=== PATIENT | male | born 1930 | race Caucasian/White ===

== ENCOUNTER 2018-04-04 07:17 | Emergency (ER) | payer OTHER ==
--- NOTE | 2018-04-04 08:02 | EDPHY ---
H & P Stated Complaint: PT. fell aprox 2" off of step ladder backward onto [email or web address] 04/03 Time Seen by Provider: 04/04/18 07:27 HPI/ROS: This patient complains of left posterior chest wall pain after a fall from approximately 18 in from the ground on a step ladder outside of his home yesterday afternoon. He fell backwards (witnessed by his son who accompanies him here today and drove him here by private vehicle) landing on a ground light at a metal frame verses back. He also reports a contusion to his left elbow with no significant pain. He reports that the chest wall pain is moderate baseline but 8/10 with movement. He took 400 mg of ibuprofen 3 hr prior to arrival and oxycodone 5 mg shortly prior to arrival with partial relief. No other exacerbating factors. He describes losing his balance as the cause of the fall and his son confirms this. ROS: Constitutional: He felt well prior to the fall. HEENT: No facial injuries Musculoskeletal: No midline neck or back pain. He reports left elbow pain is minimal and no change with movement. Integumentary: As an abrasion to the left upper back at the site of impact and superficial elbow abrasion. No lacerations. Neuro: No head injury. No numbness or tingling. 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 There has been no change in his chronic wounds minor drainage that he treats with any bandage each day. He has no abdominal pain. No nausea vomiting since the fall 10 point review of symptoms is performed and otherwise negative with exception of pertinent positives and negatives listed in HPI and ROS Source: Patient Exam Limitations: No limitations - Personal History Current Tetanus Diphtheria and Acellular Pertussis (TDAP): Unsure - Medical/Surgical History Hx Asthma: No Hx Chronic Respiratory Disease: No Hx Diabetes: No Hx Cardiac Disease: No Hx Renal Disease: No Hx Cirrhosis: No Hx Alcoholism: No Hx HIV/AIDS: No Hx Splenectomy or Spleen Trauma: No - Social History Smoking Status: Never smoked Constitutional: Initial Vital Signs Temperature (C) 36.4 C 04/04/18 07:25 Heart Rate 64 04/04/18 07:25 Respiratory Rate 16 04/04/18 07:25 Blood Pressure 139/76 H 04/04/18 07:25 O2 Sat (%) 88 L 04/04/18 07:25 O2 Delivery Mode Room Air Allergies/Adverse Reactions: Penicillins Allergy (Severe, Verified 04/04/18 07:23) Anaphylaxis sulfamethoxazole [From Bactrim] Allergy (Verified 04/04/18 07:23) trimethoprim [From Bactrim] Allergy (Verified 04/04/18 07:23) Home Medications: Medication Instructions Recorded Ascorbic Acid [Vitamin C 250 mg 250 mg PO DAILY 03/14/12 (OTC)] Aspirin [Aspirin 81mg (OTC)] 81 mg PO DAILY 03/14/12 Calcium Citrate [Citracal (OTC)] 200 mg PO DAILY 03/14/12 Cholecalciferol Vit D3 [Vitamin D3 400 units PO DAILY 03/14/12 400 units (OTC)] Coenzyme Q10 [Co Q-10 30 mg (OTC)] 100 mg PO DAILY 03/14/12 Levothyroxine [Synthroid 75 mcg 75 mcg PO DAILY06 03/14/12 (RX)] Multivitamins [Multivitamin (OTC)] 1 tab PO DAILY 03/14/12 [place]-3 Fatty Acids/Fish Oil [Fish 1 tab PO DAILY 03/14/12 Oil 1,000 mg Capsule] Allopurinol [Allopurinol 100 MG 04/04/18 (*)] Docusate Sodium [Colace 100 MG (*)] 100 mg PO BID PRN #20 cap 04/04/18 Lidocaine [Lidoderm] 1 each TP DAILY #15 adh..patch 04/04/18 Rosuvastatin Calcium [Crestor] 04/04/18 oxyCODONE/APAP 5/325 [Percocet 1 - 2 tab PO Q4-6PRN PRN #30 tab 04/04/18 5/325 (*)] Medical Decision Making - Diagnostics Imaging Results: Two view chest x-ray with rib views: Left 2nd through 6th rib fractures by my interpretation. I do not appreciate evidence of pneumothorax or hemothorax. Imaging: I viewed and interpreted images myself ED Course/Re-evaluation: Patient treated with additional analgesia of Lidoderm patch and Percocet He is instructed in the use of and participated in the use of incentive spirometer and tolerated this after analgesia here. His room air O2 sat with a good waveform prior to DC was 93% He remained stable while in the emergency department. His O2 sat occasionally dipped into the high 80s but then went typically return to low 90s once he settled. I think that his mild hypoxia attributable to splinting from the rib injuries. Although the patient has significant pain associated with his injury he seems to be tolerating it and I think that he is best served by proceeding home with analgesia plan of NSAIDs, opiates, Lidoderm patches an incentive spirometer. Clinically I do not appreciate any evidence of other significant injuries. He has a benign belly exam no evidence of head injury or other red flag findings. His son is a dentist and has a O2 sat probe at home that he will use to help monitor is father's respiratory status. The understand the need to return emergency department should he develop dyspnea, hypoxia, unbearable pain or other concerns. - Data Points Medications Given: Discontinued Medications Miscellaneous Medication (Icy Hot Lidocaine/Menthol 4%/1% Patch) 1 patch TD EDNOW ONE Stop: 04/04/18 08:31 Last Admin: 04/04/18 08:41 Dose: 1 patch Departure - Departure Disposition: Home, Routine, Self-Care Clinical Impression: Ribs, multiple fractures Qualifiers: Encounter type: initial encounter Fracture type: closed Laterality: left Qualified Code(s): S22.42XA - Multiple fractures of ribs, left side, initial encounter for closed fracture Condition: Good Instructions: Oxycodone/Acetaminophen (By mouth), Lidocaine Patch (On the skin) , Rib Fracture (ED) Additional Instructions: Diagnosis: Multiple rib fractures Plan: Continue ibuprofen -400 mg per 6 hr, Tylenol and/or Percocet in addition for pain control. No driving on Percocet Lidoderm patches as well for pain control Colace stool softener while on Percocet to prevent constipation Incentive spirometer to try to prevent potential secondary complication of pneumonia that can happen if one does not take sufficiently deep breaths due to the rib pain. Follow up with primary care physician for recheck in 2-5 days. Return emergency department if you develop fevers, shortness of breath, coughing up blood or unbearable pain despite the analgesic medications or other concerns. Referrals: Patient,NotPresent [Primary Care Provider] - As per Instructions Denise De La Torre MD [Medical Doctor] - As per Instructions Prescriptions: Docusate Sodium [Colace 100 MG (*)] 100 mg PO BID PRN #20 cap PRN Reason: Constipation Lidocaine [Lidoderm] 1 each TP DAILY #15 adh..patch oxyCODONE/APAP 5/325 [Percocet 5/325 (*)] 1 - 2 tab PO Q4-6PRN PRN #30 tab PRN Reason: Pain
[2018-04-04] MEDS ORDERED: LIDOCAINE 4%/MENTHOL 1% PATCH TD ONE (08:30)
[2018-04-04] MEDS ORDERED: OXYCODONE/APAP 5/325 TAB PO ONE (08:46)
[2018-04-04 09:59] VITALS: BP 120/74
[2018-04-04] MEDS ORDERED: PATCH REMOVAL 1 EA PATCH TD SCH (21:00)
== END 2018-04-04 08:55 | disposition home or self-care (01) ==
LOC: CED 07:17
DX: S22.42XA Multiple fractures of ribs, left side, initial encounter for closed fracture (principal); J93.9 Pneumothorax, unspecified; W11.XXXA Fall on and from ladder, initial encounter; Y92.009 Unspecified place in unspecified non-institutional (private) residence as the place of occurrence of the external cause; Y93.9 Activity, unspecified; Y99.9 Unspecified external cause status
CPT/HCPCS: 71101-PO

== ENCOUNTER → 2018-04-05 | Outpatient (CLI) | payer OTHER | LOC: CIMAGING 08:29 | PROVIDERS: ATTEND Family Medicine | DX: J93.9 Pneumothorax, unspecified (principal); S22.39XA Fracture of one rib, unspecified side, initial encounter for closed fracture | CPT/HCPCS: 71046-PO ==

== ENCOUNTER → 2018-04-11 | Outpatient (CLI) | payer OTHER | LOC: FIMAGING 12:46 → EDSTATUS 12:49 | PROVIDERS: ATTEND Surgery | DX: S22.42XA Multiple fractures of ribs, left side, initial encounter for closed fracture (principal); J84.9 Interstitial pulmonary disease, unspecified ==

== ENCOUNTER 2018-04-23 13:00 | Inpatient (IN) | payer OTHER ==
--- NOTE | 2018-04-23 13:31 | CPEKG ---
Test Reason : OPEN Blood Pressure : / mmHG Vent. Rate : 084 BPM Atrial Rate : 084 BPM P-R Int : 165 ms QRS Dur : 109 ms QT Int : 369 ms P-R-T Axes : 022 -37 024 degrees QTc Int : 437 ms Sinus rhythm Left axis deviation Borderline T wave abnormalities Confirmed by Miguel Angel Pal ([id number]) on 04/23/2018 1:30:39 PM Referred By: Confirmed By:Miguel Angel Pal
--- NOTE | 2018-04-23 13:36 | EDPHY ---
H & P Smoking Status: Never smoked <Miguel Angel Pal - Last Filed: 04/23/18 15:07> <Jez Uriostegui - Last Filed: 04/23/18 17:40> Time Seen by Provider: 04/23/18 13:31 HPI/ROS: Chief complaint. Chest pain HPI. Patient is an 88-year-old male who presents with left anterior chest discomfort that he describes initially as sharp and now more achy that began at 11:00 a.m. This morning. There is no radiation. He says no shortness of breath. Denies cough or fever. Patient had rib fractures 4 through 7 3 weeks ago left posteriorly after falling off a ladder. He had a small apical left pneumothorax that resolved on subsequent chest x-rays. Last chest x-ray on April 11 showed no pneumothorax. The pain today however is in the anterior aspect of his left chest and is different than his broken rib pain. He tells me he has had this previously and thinks that he may have pain coming from his heart. He occasionally takes and choose an aspirin for this type pain and the pain goes away. He tells me the pain is not worse with exertion or breathing or range of motion. He has no unusual leg pain or swelling. The patient is quite a poor historian and hard to keep on track ROS 10 systems were reviewed and negative with the exception of the elements mentioned in the history of present illness (Miguel Angel Pal) Past Medical/Surgical History: Past medical history is significant for dyslipidemia, gout, soft chills stricture, diverticulosis, peptic ulcer disease, hiatal hernia, fundoplication ( Miguel Angel Pal) Social History: , nonsmoker, no alcohol (Miguel Angel Pal) Physical Exam: General Appearance: Alert developed male mild distress. Vitals significant for initial O2 saturation of 88% on room air though with talking he desaturated to 80% Eyes: Pupils equal and round no pallor or injection. ENT, Mouth: Mucous membranes are moist. Respiratory: No retractions. Inspiratory expiratory rales Cardiovascular: Regular rate and rhythm. Gastrointestinal: Abdomen is soft and nontender, no masses, bowel sounds normal. Neurological: Awake and alert, sensory and motor exams grossly normal. Skin: Warm and dry, no rashes. Musculoskeletal: Neck is supple nontender. Extremities symmetrical, full range of motion. Psychiatric: Patient is oriented X 3, there is no agitation. (Miguel Angel Pal) Constitutional: Initial Vital Signs Temperature (C) 36.5 C 04/23/18 13:08 Heart Rate 98 04/23/18 13:08 Respiratory Rate 16 04/23/18 13:08 Blood Pressure 130/81 H 04/23/18 13:08 O2 Delivery Mode Nasal Cannula O2 (L/minute) 3 Allergies/Adverse Reactions: Penicillins Allergy (Severe, Verified 04/04/18 07:23) Anaphylaxis sulfamethoxazole [From Bactrim] Allergy (Verified 04/04/18 07:23) trimethoprim [From Bactrim] Allergy (Verified 04/04/18 07:23) Home Medications: Medication Instructions Recorded Ascorbic Acid [Vitamin C 250 mg 250 mg PO DAILY 03/14/12 (OTC)] Aspirin [Aspirin 81mg (OTC)] 81 mg PO DAILY 03/14/12 Calcium Citrate [Citracal (OTC)] 200 mg PO DAILY 03/14/12 Cholecalciferol Vit D3 [Vitamin D3 400 units PO DAILY 03/14/12 400 units (OTC)] Coenzyme Q10 [Co Q-10 30 mg (OTC)] 100 mg PO DAILY 03/14/12 Levothyroxine [Synthroid 75 mcg 75 mcg PO DAILY06 03/14/12 (RX)] Multivitamins [Multivitamin (OTC)] 1 tab PO DAILY 03/14/12 [place]-3 Fatty Acids/Fish Oil [Fish 1 tab PO DAILY 03/14/12 Oil 1,000 mg Capsule] Allopurinol [Allopurinol 100 MG 04/04/18 (*)] Docusate Sodium [Colace 100 MG (*)] 100 mg PO BID PRN #20 cap 04/04/18 Lidocaine [Lidoderm] 1 each TP DAILY #15 adh..patch 04/04/18 Rosuvastatin Calcium [Crestor] 04/04/18 oxyCODONE/APAP 5/325 [Percocet 1 - 2 tab PO Q4-6PRN PRN #30 tab 04/04/18 5/325 (*)] Medical Decision Making <Miguel Angel Pal S - Last Filed: 04/23/18 15:07> - Diagnostics Imaging: Discussed imaging studies w/ manager call Radiologist <Jez Uriostegui - Last Filed: 04/23/18 17:40> - Diagnostics EKG Interpretation: EKG interpreted by me shows normal sinus normal interval. Left axis deviation. QRS is otherwise normal. There is no significant ST elevation or depression. The rate is 84 No previous EKGs for comparison Monitor strip shows PVC every 4th beat (Miguel Angel Pal) Imaging Results: Imaging Impressions Chest X-Ray 04/23/18 13:55 Impression: 1. There are several persistent left-sided rib fractures, some of which are displaced, with an associated left pleural hematoma and small pleural effusion and left basilar atelectasis/mild infiltrate. 2. Slightly more pronounced hypoventilatory change with diffuse peribronchial thickening and bilateral interstitial lung disease; a component of CHF is not excluded. Chest/Thorax CTA 04/23/18 14:48 Impression: 1. No evidence for pulmonary embolic disease. 2. Large left pleural effusion + 9 left rib fractures raising the possibility of a flail chest. 3. Cardiomegaly with LAD CAD. Chronic pulmonary artery hypertension. 4. Underlying chronic interstitial lung disease vs interstitial pulmonary edema. 5. Gallstone possibly impacted in the gallbladder neck with a distended gallbladder, but without secondary evidence of gallbladder inflammation. Results discussed with Dr. Uriostegui at 3:53 PM General information for patients regarding this examination can be found at [email or web address]. If you have questions or comments about this report, please contact me at (hospital) or [phone] (cell). Chest x-ray interpreted by me shows healing rib fractures, no pneumothorax. There is maybe a new left lower lobe infiltrate. Evidence of congestive heart failure present (Miguel Angel Pal) Procedures: IV normal saline, O2, monitor (Miguel Angel Pal) ED Course/Re-evaluation: Heart score--history-1, EKG-1, age--2, risk factors--1, troponin-0 Total--5 D-dimer is elevated. CT scan chest is ordered. Patient will be given 500 cc normal saline bolus prior to contrast Patient and his and I discussed treatment plan including recommendation for admission. They expressed understanding and agreement (Miguel Angel Pal) 4:00 p.m. We discussed the CT results. The patient is currently comfortable with oxygen nasal cannula. I suspect that the large pleural effusions causing most of his hypoxia and probably chest pain symptoms. I recommended admission and he agreed. Will likely have IR place thoracentesis. We discussed his gallstone. He has no tenderness over his gallbladder. No fevers. We also discussed the coronary artery disease seen on CT scan and edema. 4:05 p.m. I discussed the case with Dr. Estevez who agrees with the plan and will admit. (Jez Uriostegui) Differential Diagnosis: Partial list of the Differential diagnosis considered include but were not limited to; pleural effusion, PE, acute coronary disease, pneumothorax, cholecystitis and although unlikely based on the history and physical exam, I also considered aneurysm, dissection. (Jez Uriostegui) Care Turn Over: Dr. Uriostegui at 3 pm (Miguel Angel aPl) - Data Points Laboratory Results: 04/23/18 04/23/18 04/23/18 14:56 14:16 14:15 POC Sodium 142 mEq/L mEq/L (135-145) POC Potassium 3.6 mEq/L mEq/L (3.3-5.0) POC Chloride 101.0 mEq/L mEq/L (97-110) POC Total CO2 26 mEq/L mEq/L (22-31) POC BUN 23 mg/dL mg/dL (7-23) POC Creatinine 1.2 mg/dL mg/dL (0.7-1.3) POC Glucose 116 mg/dL H mg/dL (70-100) POC Calcium 9.7 mg/dL mg/dL (8.5-10.4) POC Troponin I 0.01 ng/mL ng/mL (0.00-0.08) NT-Pro-B Natriuret Pep 276 pg/mL pg/mL (0-450) Medications Given: Discontinued Medications Sodium Chloride (Ns) 500 mls @ 0 mls/hr IV ONCE ONE PRN Reason: Wide Open Stop: 04/23/18 14:53 Last Admin: 04/23/18 14:50 Dose: 500 mls Point of Care Test Results: CBC CBC Collection Date 04/23/18 CBC Collection Time 14:19 WBC 9.1 RBC 3.6 HGB 13.5 HCT 39.0 PLT 264 Neut # 6.2 Neut 68.2 LYMPH # 1.7 LYMPH 19.0 Other WBC # 1.2 Other WBC 12.8 MCV 108.3 Chemistry 04/23/18 04/23/18 14:16 14:15 POC Sodium 142 mEq/L mEq/L (135-145) POC Potassium 3.6 mEq/L mEq/L (3.3-5.0) POC Chloride 101.0 mEq/L mEq/L (97-110) POC Total CO2 26 mEq/L mEq/L (22-31) POC BUN 23 mg/dL mg/dL (7-23) POC Creatinine 1.2 mg/dL mg/dL (0.7-1.3) POC Glucose 116 mg/dL H mg/dL (70-100) POC Calcium 9.7 mg/dL mg/dL (8.5-10.4) POC Troponin I 0.01 ng/mL ng/mL (0.00-0.08) D-Dimer D-Dimer Collection Date 04/23/18 D-Dimer Collection Time 14:19 D-Dimer (ng/ml) 3100 Departure <Miguel Angel Pal S - Last Filed: 04/23/18 15:07> <Jez Uriostegui - Last Filed: 04/23/18 17:40> - Departure Disposition: [facility] Inpatient Acute Clinical Impression: Pleural effusion Chest pain Qualifiers: Chest pain type: unspecified Qualified Code(s): R07.9 - Chest pain, unspecified Condition: Fair
[2018-04-23] MEDS ORDERED: NS 500 ML IV ONE (14:52)
[2018-04-23] MEDS ORDERED: IOPAMIDOL (ISOVUE 370) 100 ML BTL IV ONE (14:55)
[2018-04-23] MEDS ORDERED: ACETAMINOPHEN 325 MG TAB PO PRN (16:10)
[2018-04-23] MEDS ORDERED: ONDANSETRON 4 MG/2 ML VIAL IVP PRN (16:10)
[2018-04-23] MEDS ORDERED: ONDANSETRON DISINTEGRATING 4 MG TAB PO PRN (16:10)
--- NOTE | 2018-04-23 18:54 | PDGENHP ---
History and Physical - Chief Complaint Chest pain - History of Present Illness 88 y/o male presents today with left-sided chest pain rating it 4-5/10. He reports it was directly underneath his left nipple. Denies SOB, dizziness, N/V , vision changes. The pain did not radiate. Approximately 3 weeks ago, the pt fell off a ladder and landed on his left side sustaining numerous rib fractures. Since then, he has been utilizing hydrocodone BID and felt as if the discomfort he was feeling on his left side abdomen/flank area was improving until this unusual chest pain occurred. He reports taking a baby aspirin daily and this usually alleviates chest pain he has had in the past but today, it did not so he decided to seek help. The chest pain is not aggravated by anything - deep breathing or exertion does not exacerbate it. He presently was not experiencing the chest pain. CTA shows a large left sided pleural effusion. He is being admitted for a further diagnostic work-up. History Information - Allergies/Home Medication List Allergies/Adverse Reactions: Penicillins Allergy (Severe, Verified 04/04/18 07:23) Anaphylaxis sulfamethoxazole [From Bactrim] Allergy (Verified 04/04/18 07:23) trimethoprim [From Bactrim] Allergy (Verified 04/04/18 07:23) Home Medications: Ascorbic Acid [Vitamin C 250 mg (OTC)] 250 mg PO DAILY 03/14/12 [Last Taken 11/17] Aspirin [Aspirin 81mg (OTC)] 81 mg PO DAILY 03/14/12 [Last Taken 03/12/12] Calcium Citrate [Citracal (OTC)] 200 mg PO DAILY 03/14/12 [Last Taken 03/13/12] Levothyroxine [Synthroid 75 mcg (RX)] 75 mcg PO DAILY06 03/14/12 [Last Taken 11/17] Multivitamins [Multivitamin (OTC)] 1 tab PO DAILY 03/14/12 [Last Taken 03/13/12] Aspirin EC [Aspirin EC 81 mg (*)] 81 mg PO DAILY 04/23/18 [Last Taken 04/22/18] Herbals/Supplements -Info Only 1 ea PO DAILY 04/23/18 [Last Taken Unknown] Rosuvastatin Calcium [Crestor 10mg (RX)] 10 mg PO HS 04/23/18 [Last Taken ] I have personally reviewed and updated: family history, medical history, social history, surgical history Past Medical History: Bladder CA, Dyslipidemia, Gout, PUD, Hiatal Hernia, Diverticulosis, Hypothyroid - Surgical History Additional surgical history: Fundoplication, vasectomy, left testicular torsion repair, TURP - Family History Positive for: non-pertinent - Social History Smoking Status: Never smoked Alcohol Use: Occasionally Drug Use: None Additional social history: 1-2 whiskey drinks/day Review of Systems Review of Systems: ROS: 10pt was reviewed & negative except for what was stated in HPI & below Constitutional: Reports: recent injury EENMT: Reports: no symptoms Cardiac: Reports: chest pain Respiratory: Reports: shortness of breath Gastrointestinal: Reports: no symptoms Genitourinary: Reports: no symptoms Muscolosketal: Reports: muscle pain (Twisting causes pain to his left ribs) Skin: Reports: no symptoms Neurological: Reports: no symptoms Hematologic/Lymphatic: Reports: no symptoms Immunologic/Allergy: Reports: mold allergy, pollen allergy Physical Exam Physical Exam: Labs and Imaging reviewed. Temp Pulse Resp BP Pulse Ox 36.1 C 83 16 129/85 H 97 04/23/18 18:02 04/23/18 18:02 04/23/18 18:02 04/23/18 18:02 04/23/18 18:02 O2 (L/minute) 2 Constitutional: other (Appears to be in mild distress. Slightly dyspneic.) Eyes: PERRL, anicteric sclera, EOMI Ears, Nose, Mouth, Throat: moist mucous membranes, hearing normal, ears appear normal, no oral mucosal ulcers Cardiovascular: regular rate and rhythym, no murmur, rub, or gallop, pulses symmetric bilaterally, No edema Peripheral Pulses: 1+: dorsalis-pedis (R) (BUE radial pulses +2), dorsalis- pedis (L) Respiratory: reduced air movement, inspiratory crackles, respiratory distress ( Mild; cannot complete sentence without stopping every one to two words to take a breath) Gastrointestinal: normoactive bowel sounds, soft, non-tender abdomen, no palpable masses Genitourinary: no bladder fullness, no bladder tenderness Skin: warm, normal color, no rashes or abrasions, no fluctuance, no induration, No mottled Musculoskeletal: no muscle tenderness, no joint effusions, pain with ROM ( Twisting his torso causes discomfort with his ribs; palpating the torso and chest region does not cause pain) Neurologic: AAOx3, sensation intact bilaterally Psychiatric: interacting appropriately, not anxious, not encephalopathic, thought process linear Lymph, Heme, Immunologic: no cervical LAD, no supraclavicular LAD Lab Data & Imaging Review POC Sodium 142 mEq/L (135-145) 04/23/18 14:15 POC Potassium 3.6 mEq/L (3.3-5.0) 04/23/18 14:15 POC Chloride 101.0 mEq/L (97-110) 04/23/18 14:15 POC Total CO2 26 mEq/L (22-31) 04/23/18 14:15 POC BUN 23 mg/dL (7-23) 04/23/18 14:15 POC Creatinine 1.2 mg/dL (0.7-1.3) 04/23/18 14:15 POC Glucose 116 mg/dL (70-100) H 04/23/18 14:15 POC Calcium 9.7 mg/dL (8.5-10.4) 04/23/18 14:15 POC Troponin I 0.01 ng/mL (0.00-0.08) 04/23/18 14:16 NT-Pro-B Natriuret Pep 276 pg/mL (0-450) 04/23/18 14:56 Assessment & Plan Assessment: 88 y/o male presents with left sided chest pain. Recent injury to left lateral side of pt cause multiple rib fractures, a small pneumothorax that has since healed and now, subsequently left pleural effusion. Plan: #Left Side Pleural Effusion: I suspect this is caused from recent trauma to the area and rib fractures -Thoracentesis tomorrow -CBC tonight and one after thoracentesis -INR/PT tomorrow -Pain control -Continuous pulse ox -Incentive spirometry, Acapella with RT #Chest pain: possibly d/t effusion. Will need to r/o cardiac related. -Cycle trops -Echo -Continue Tele #Gallstone: asymptomatic. Negative couch's sign. Denies post-prandial pain. Continue to monitor. #Interstitial Lung Disease vs Interstitial Pulmonary Edema -Recommend pt to follow up outpatient pulmonary #Flail Chest: see Left Side Pleural Effusion Diet: Regular now, NPO at midnight tonight VTE ppx: SCDs Code: Full at present. Please address with patient tomorrow. Dispo: Admit to obs
[2018-04-23] MEDS ORDERED: HYDROmorphONE/DILAUDID 1 MG/ML INJ IVP PRN (20:09)
[2018-04-23] MEDS ORDERED: oxyCODONE IR 5 MG TAB PO PRN (20:09)
--- NOTE | 2018-04-23 21:53 | GCON ---
REASON FOR CONSULTATION: I was asked to see the patient in followup for his previous traumatic injur y. HISTORY: Several weeks ago, the patient fell off a ladder while pruning trees, and was admitted to [facility] with multiple rib fractures. While it was originally read out as 5 rib fractures, today's x-ray shows 9 rib fractures on the left. He also has a modest pleural effusion today. Pulmonary angiogram shows no sign of pulmonary emboli sm. The patient presented today because of an increase in left-sided chest pain. It radiates from his ba ck to under the breast. The patient denies any recent falls since his last episode. PAST MEDICAL HISTORY: Known coronary artery disease. The patient takes baby aspirin daily. CURRENT MEDICATIONS: Actually minimal, including aspirin, ascorbic acid, and Bactrim. PHYSICAL EXAM: GENERAL: Pleasant interactive male. HEENT: Within normal limits. NECK: Nontender . MUSCULOSKELETAL: No supraclavicular or axillary crepitus. Clavicles are intact. Minimal rib harmony n on the left side. Sternum is stable to compression. Pelvis is stable. Lower extremities unremark able. ABDOMEN: Soft, benign. LUNGS: Breath sounds decreased in the left base. CT and chest x-ray were reviewed. ASSESSMENT: Multiple left rib fractures, old, with pleural effusion. RECOMMENDATIONS/PLAN: Thoracentesis under ultrasound guidance tomorrow. I think it is unlikely the patient will need a formal chest tube. /[id number]/MODL
[2018-04-23] MEDS ORDERED: NITROGLYCERIN 0.4 MG BTL SL PRN (23:10)
[2018-04-23] MEDS ORDERED: OXYCODONE/APAP 5/325 TAB PO PRN (23:11)
[2018-04-23] MEDS ORDERED: DOCUSATE SODIUM 100 MG CAP PO PRN (23:11)
--- NOTE | 2018-04-23 23:23 | PDGENHP ---
History and Physical History and Physical: Please see history and physical note by Hanna Kerns [employer], I have reviewed all the details and concur with her history of present illness, review of systems, past medical, past surgical, family, social histories, review of allergies, vital signs, physical exam and assessment plan with the following additions: -Mr. Castorena presented with acute anterior left-sided chest pain which he describes as different in character than his previous rib fracture pain which is located more lateral-posteriorly, and the most likely cause is acute reactive pleural effusion adjacent to his 9+ rib fractures -that being said, the patient does endorse recent reduction in exercise tolerance prior to his mechanical fall which resulted in his rib fractures, and it would be prudent for us to perform an echocardiogram at this time for further evaluation -will also cycle his cardiac enzymes and monitor on telemetry -physical examination demonstrates no reproducible left anterior chest tenderness, minimally reproducible left lateral chest tenderness, reduced air movement in the left lateral aspect up to the mid posterior segment with some faint inspiratory crackles bilaterally, several word dyspnea and no lower extremity edema -we should perform a diagnostic and therapeutic thoracentesis to evaluate for hemothorax, parapneumonic effusion, verses reactive effusion -I have discussed with Dr. Roman as well as Dr. Corbin, and since the patient does not appear to have acute respiratory failure or acute flail chest at this time, the thoracentesis will be performed tomorrow a.m. With appropriate studies to be sent, and Dr. Roman will evaluate the patient this evening -depending on how the patient feels after said procedure with his physical and occupational therapy assessments, the patient can either be safely discharged home with ongoing pain control or if he experiences a subsequent exertional chest discomfort, then cardiac risk stratification would be indicated at that time -recommend ongoing pulmonary hygiene with Acapella, incentive spirometer, pain management if needed -the patient's findings of possible interstitial lung disease are most likely chronic in nature, appreciated on previous chest x-ray as well as on the current chest CT, and I recommend that he received outpatient pulmonary referral for further investigation -the patient also has a large biliary stone located at the gallbladder neck, which does not appear to be resulting in acute or even chronic cholecystitis with a negative Carty sign, no recent postprandial pain, and I recommend ongoing surveillance of symptoms in the outpatient setting through his primary care provider office I have seen and evaluated the patient myself and as noted above, I agree with the evaluation in the history and physical by Hanna Kerns NP.
[2018-04-24 04:42] LABS: PLATELET COUNT 233 10^3/uL (150-400)
[2018-04-24 04:49] LABS: INR 1.16 (0.83-1.16)
[2018-04-24] MEDS: LEVOTHYROXINE 75 MCG TAB PO SCH (06:45)
[2018-04-24] MEDS: ASCORBIC ACID 250 MG TAB PO SCH (08:43)
[2018-04-24] MEDS: CALCIUM CARBONATE 500 MG TAB PO SCH (08:43)
[2018-04-24] MEDS: MULTIVITAMINS 1 EACH TAB PO SCH (08:43)
[2018-04-24] MEDS ORDERED: Herbals/Supplements -Info Only PO SCH (09:00)
--- NOTE | 2018-04-24 09:39 | SOAPPROG ---
SOAP Progress Note Assessment/Plan: Assessment: 88 male with multiple left rib fxs and left pleural effusion bs equal/ afebrile/ hct stable/ cor rr/ abd soft, nontender possible left thorascentesis today to try and avoid chest tube Plan:thorascentesis 04/24/18 09:35 Objective: Vital Signs Temp Pulse Resp BP Pulse Ox 36.6 C 84 17 105/70 94 04/24/18 08:00 04/24/18 08:00 04/24/18 08:00 04/24/18 08:00 04/24/18 08:00 Laboratory Results 04/24/18 03:06 04/24/18 03:06 04/23/18 04/24/18 04/25/18 05:59 05:59 05:59 Intake Total 800 Output Total 120 100 Balance 680 -100 PT 15.0 SEC (12.0-15.0) 04/24/18 03:06 INR 1.16 (0.83-1.16) 04/24/18 03:06 ICD10 Worksheet Patient Problems: Problems Problem Status Onset Chest pain Acute Pleural effusion Acute
[2018-04-24] MEDS ORDERED: LIDOCAINE 1% 300 MG/30 ML SDV ONE (10:31)
--- NOTE | 2018-04-24 14:57 | ASMTCMCOM ---
CM Note CM Note Notes: 04/24/2018 Case Management Note Pt admitted for rib fx, scope and pulmonary contusion. Thoracentesis today. Met w/pt and [place] [phone] to assess discharge needs. PT recommending home care. Pt in agreement. Pt and able to drive and report not difficulties with groceries. Faxed referral to [facility]. Notified via phone. Case Management d/c poc: [facility] RN PT Case Management to follow. Date Signed: 04/24/2018 02:56 PM Electronically Signed By:Rula Bolton RN
--- NOTE | 2018-04-24 15:22 | ECHO ---
[email or web address] [address] [address] Main: [phone] Fax: Transthoracic Echocardiogram Name: SHARON HART MR#: [id number] Study Date: 04/24/2018 Study Time: 08:05 AM Date of : 1930 Age: 88 year(s) Height: 170.2 cm (67 in.) Weight: 79.38 kg (175 lb.) BSA: 1.91 m2 Gender: Male Examination: Echo Indication: chest pains, Shortness of breath, 9 broken ribs Image Quality: Technically Difficult Contrast: Requested by: Izabella Kerns BP: 105 mmHg/70 mmHg Heart Rate: Rhythm: Indication: chest pains, Shortness of breath, 9 broken ribs Procedure Staff Information Technology Assistant: Frida Lawrence [facility] Reading Physician: Nghia Montez MD Requesting Provider: Conclusions: Normal size left ventricle. Borderline concentric LV hypertrophy. EF is 68 %. Normal diastolic LV function. There is mild thickening of the mitral valve leaflets. Mild mitral valve regurgitation is present. No mitral stenosis is present. There is mild thickening of the aortic cusps. There is no aortic valve regurgitation. No aortic valve stenosis is present. Trivial tricuspid valve regurgitation. Pulmonary artery pressure is not obtained due to inadequate TR jet. No pericardial effusion. There is a pleural effusion present. No prior study for comparison. Measurements: Chambers Valvular Assessment AV/MV Valvular Assessment TV/PV Normal Normal Normal Name Value Range Name Value Range Name Value Range Ao Consuelo (MM): 3.0 cm (2.2 cm-3.7 AV Vmax: 1.21 m/s (1 m/s-1.7 PV Vmax: 0.63 m/s (0.6 m/s-0.9 cm) m/s) m/s) IVSd (2D): 0.9 cm (0.6 cm-1.1 AV maxP mmHg ( - ) PV PGmax: 2 mmHg ( - ) cm) LVOT Vmax: 0.67 m/s (0.7 m/s-1.1 LVDd (2D): 4.8 cm (4.2 cm-5.9 m/s) cm) MV E Vmax: 0.73 m/s ( - ) LVDs (2D): 3.0 cm (2.1 cm-4 MV A Vmax: 0.98 m/s ( - ) cm) MV E/A: 0.74 ( - ) LVPWd (2D): 1.0 cm (0.6 cm-1 cm) Patient: SHARON HART Study Date: 04/24/2018 Page 1 of 2 08:05 AM LVEF (2D): 68 (>=54 %) RVDd(2D): 3.9 cm (1.9 cm-3.8 cmmm) Continued Measurements: Chambers Valvular Assessment AV/MV Name Value Name Value LADs: 4.2 cm MV DecTime: 232 m/s LADs Lon.5 cm MV E' Septal: 0.05 m/s LA Area: 19.7 cm2 MV E/E' Septal: 13.40 LA Volume: 56 ml MV E/E' Lateral: 10.70 LA Volume Index: 29.3 ml/m2 TAPSE: 1.6 cm RA Area: 17.1 cm2 Additional Vessels Name Value Ao Ascendin.2 cm Findings: Left Ventricle: Normal size left ventricle. Borderline concentric LV hypertrophy. Normal global systolic LV function. EF is 68 %. Cannot rule out wall motion abnormalities in the apical window due to large pleural effusion and limited views. Normal diastolic LV function. Right Ventricle: Normal size right ventricle. Mildly reduced RV function. Left Atrium: The left atrium is normal in size. Right Atrium: The right atrium is normal in size. Mitral Valve: There is mild thickening of the mitral valve leaflets. Mild mitral valve regurgitation is present. No mitral stenosis is present. Aortic Valve: There is mild thickening of the aortic cusps. There is no aortic valve regurgitation. No aortic valve stenosis is present. Tricuspid Valve: The tricuspid valve is normal in appearance and function. Trivial tricuspid valve regurgitation. Pulmonary artery pressure is not obtained due to inadequate TR jet. Pulmonic Valve: Pulmonary valve not well visualized. Trivial pulmonic valve regurgitation. Aorta: Normal size aortic root measuring 3.0 cm. Normal size ascending aorta measuring 3.2 cm. IVC: The IVC is not well visualized. Pericardium: No pericardial effusion. There is a pleural effusion present. (No Signature Object) Patient: SHARON HART Study Date: 04/24/2018 Page 2 of 2 08:05 AM [id number]
--- NOTE | 2018-04-24 17:17 | HOSPPROG ---
Hospitalist Progress Note Assessment/Plan: * Hemothorax -d/w Dr. Corbin - follow H/H for another 24 hours -if H/H still dropping, then may need intercostal artery embolization * Rib fractures x 9 with possible flail chest -no further intervention needed per surgery * Chest pain/SOB -suspect due to effusion -re-evaluate symptoms now that fluid is drained * Asymptomatic gallstone * Possible ILD -doubt CHF with normal BNP Subjective: No new complaints, no chest pain, thinks he is better post thoracentesis Objective: Vital Signs Temp Pulse Resp BP Pulse Ox 36.8 C 86 12 110/64 98 04/24/18 16:00 04/24/18 16:00 04/24/18 16:00 04/24/18 16:00 04/24/18 16:00 04/23/18 04/24/18 04/25/18 05:59 05:59 05:59 Output Total 700 Balance -700 PT 15.0 SEC (12.0-15.0) 04/24/18 03:06 INR 1.16 (0.83-1.16) 04/24/18 03:06 ECHO - normal EF, otherwise unremarkable CTA chest - no PE Laboratory Tests 04/23/18 04/24/18 04/24/18 20:27 03:06 12:30 Hct 34.0 L 34.6 L Pleural Color RED H Pleural Appearance CLOUDY H Pleural pH 8.0 H Pleural RBC 227260 - Physical Exam Constitutional: no apparent distress, appears nourished, not in pain Cardiovascular: regular rate and rhythym, no murmur, rub, or gallop Respiratory: no respiratory distress, no rales or rhonchi, clear to auscultation Gastrointestinal: normoactive bowel sounds, soft, non-tender abdomen, no palpable masses Skin: no rashes or abrasions, no fluctuance, no induration Neurologic: AAOx3, sensation intact bilaterally Psychiatric: interacting appropriately, not anxious, not encephalopathic, thought process linear ICD10 Worksheet Patient Problems: Problems Problem Status Onset Chest pain Acute Pleural effusion Acute
[2018-04-24] MEDS ORDERED: ROSUVASTATIN CALCIUM 10 MG TAB PO SCH (21:00)
[2018-04-25] MEDS: LEVOTHYROXINE 75 MCG TAB PO SCH (06:13)
[2018-04-25 07:34] VITALS: BP 109/69
--- NOTE | 2018-04-25 10:03 | PDHOMEO2F ---
Home Oxygen Face to Face Home Orders: I certify that a physician or a nurse practitioner or physician's urology physician assistant has had a [id number] encounter with this patient on the date of this order due to the diagnosis listed, which relates to the primary reason the patient requires home oxygen. Alternative treatments have been tried, or considered, and deemed ineffective. It is anticipated that supplemental oxygen will result in improvement with treatment. Home oxygen qualifying diagnosis: interstitial lung disease SpO2 on room air (%): 78 Frequency of home oxygen needed: continuous Home oxygen liters per minute: 2 Home oxygen delivery device: nasal cannula Concentrator: Yes E-tanks for mobility and back up: Yes If ordering portable O2, is the patient mobile in the home?: Yes I certify that, based on these findings, the home oxygen is medically necessary for this patient for the following length of time. Length of time home oxygen needed: 99 years
--- NOTE | 2018-04-25 10:03 | PDIAF ---
- Diagnosis Diagnosis: 9 rib fractures, bloody pleural effusion Code Status: Full Code - Medication Management Discharge Medications: Medications to Continue on Transfer Ascorbic Acid [Vitamin C 250 mg (*)] 250 mg PO DAILY 03/14/12 [Last Taken ] Calcium Citrate [Citracal] 200 mg PO DAILY 03/14/12 [Last Taken 03/13/12] Levothyroxine [Synthroid 75 mcg (*)] 75 mcg PO DAILY06 03/14/12 [Last Taken ] Multivitamins [Multivitamin (*)] 1 tab PO DAILY 03/14/12 [Last Taken 03/13/12] Docusate Sodium [Colace 100 MG (*)] 100 mg PO BID PRN #20 cap 04/04/18 [Last Taken Unknown] oxyCODONE/APAP 5/325 [Percocet 5/325 (*)] 1 - 2 tab PO Q4-6PRN PRN #30 tab 04/04 [Last Taken Unknown] Herbals/Supplements -Info Only 1 ea PO DAILY 04/23/18 [Last Taken Unknown] Rosuvastatin Calcium [Crestor] 10 mg PO HS 04/23/18 [Last Taken 04/22/18] Discharge Medications: Refer to the Discharge Home Medication list for PRN reason. - Orders Services needed: Home Care, Registered Nurse, Physical Therapy, Occupational Therapy Home Care Face to Face: I certify that this patient was under my care and that I had the required [id number] encounter meeting the encounter requirements on the discharge day. My findings support the fact that the patient is homebound as defined in Home Care Face to Face Continued: CMS Chapter 7 Medicare Benefits Manual 30.1.1 , The condition of the patient is such that there exists a normal inability to leave home and consequently, leaving home would require a considerable and taxing effort. Diet Recommendation: no restrictions on diet Equipment: Incentive spirometry hourly while awake Additional Instructions: Hold aspirin for 1 week, then okay to resume - Follow Up Care Current Providers and Referrals: Christine Patel MD [Primary Care Provider] - As per Instructions
--- NOTE | 2018-04-25 10:15 | ASMTLACE ---
LACE Length of stay for Answers: 2 days current admission Acuity / Level of Answers: Yes Care: Did the patient have an inpatient admission? Comorbidities - select Answers: Congestive heart failure all that apply Peptic ulcer disease Other Notes: Dyslipidemia; Diverticu los is # of Emergency department Answers: 1-2 visits in the last 6 months Score: 11 Date Signed: 04/25/2018 10:15 AM Electronically Signed By:ESTEVAN Bauman
--- NOTE | 2018-04-25 10:15 | ASMTDCNOTE ---
Case Management Discharge Discharge Order Complete? Answers: Yes Patient to Obtain Answers: via Family Medications Transportation Arranged Answers: Family/Friends EMTALA Complete Answers: No Case Management Transport Answers: No Form Complete Faxed Final Orders Answers: Yes Agency/Facility Transfer Answers: Yes Report Printed & Faxed to Receiving Agency Family Notified Answers: No Discharge Comments Notes: Pt is being discharged today. CM notified [facility] of the d/c. provided [employer] w/ number to give report. CM available for changes. Plan: [facility]; JESUS RN Date Signed: 04/25/2018 10:15 AM Electronically Signed By:ESTEVAN Bauman
[2018-04-25] MEDS: CALCIUM CARBONATE 500 MG TAB PO SCH (10:28)
[2018-04-25] MEDS: ASCORBIC ACID 250 MG TAB PO SCH (10:28)
[2018-04-25] MEDS: MULTIVITAMINS 1 EACH TAB PO SCH (10:29)
--- NOTE | 2018-04-25 10:54 | ASMTCMCOM ---
CM Note CM Note Notes: CM met w/ pt and for dispo planning. CM confirmed pts address and phone number. OT has been added to HC services. CM notified [facility] of this. CM to follow. Plan: [facility]; PT, OT, RN Date Signed: 04/25/2018 10:53 AM Electronically Signed By:ESTEVAN Bauman
--- NOTE | 2018-04-25 16:59 | GDS ---
DISCHARGE DIAGNOSES: 1. Hemothorax, traumatic. 2. Rib fractures x9, flail chest ruled out. 3. Chest pain and shortness of breath due to pleural effusion. 4. Asymptomatic gallstones. 5. Possible interstitial lung disease. HISTORY: The patient is an 88-year-old male who recently fell off a ladder and sustained multiple ri b fractures. He was discharged from the hospital. He subsequently re-presented with chest pain and shortness of breath and was found to have a large pleural effusion on that same side with CAT scan re vealing 9 rib fractures. Trauma Surgery saw him and ruled out flail chest, which was considered. Tho racentesis was performed and demonstrated a hemothorax. Interventional Radiology recommended an robert tional 24 hours of monitoring in the hospital to ensure that his H and H are stable and that he was n o longer bleeding. If H and H dropped, intercostal artery embolization would have been an option; ho wever, his H and H did remain stable. I do not think he has further bleeding at this time. His symp toms improved after pleural effusion was drained. DISCHARGE MEDICATIONS: Please see computerized record for full detailed list. There were no new med ications at the time of hospital discharge. ADDITIONAL DISCHARGE INSTRUCTIONS: 1. Hold aspirin for 1 week, then okay to resume. 2. Home health, PT, OT arranged, as well as home oxygen 2 L. 3. Greater than 30 minutes' time spent arranging this discharge. Patient was seen and examined by me on day of discharge. /[id number]/MODL
--- NOTE | 2018-04-26 15:24 | PDMN ---
Medical Necessity Medical necessity: Change to IP, as of 04/24/18, per and MCG [id number]; est los > 2 MN; Eval and tx for 9+ rib fx resulting in possible flail chest and hemothorax ; further monitoring and f/u labs; comorbidities advanced age.
== END 2018-04-25 11:45 | disposition home health service (06) | DRG 200 ==
LOC: CED 13:00 → CEDHOLD 16:03 → F2W 17:53 → OBSVTOIN 04-24 14:18
PROVIDERS: ADMIT Internal Medicine; ATTEND Internal Medicine
PROC: 0W9B3ZZ Drainage of Left Pleural Cavity, Percutaneous Approach (ICD-10-PCS; principal; 2018-04-24)
DX: S27.1XXA Traumatic hemothorax, initial encounter (principal); S22.42XA Multiple fractures of ribs, left side, initial encounter for closed fracture; J90 Pleural effusion, not elsewhere classified; J84.9 Interstitial pulmonary disease, unspecified; W11.XXXA Fall on and from ladder, initial encounter; K80.20 Calculus of gallbladder without cholecystitis without obstruction; E78.5 Hyperlipidemia, unspecified; M10.9 Gout, unspecified; Z85.51 Personal history of malignant neoplasm of bladder
CPT/HCPCS: 71046-PO; 71275-PO; 80048-PO; 84484-PO; 97161-GP; 97165-GO; 97530-GO; 97535-GO; G0378; G8978-GP-CJ; G8979-GP-CI; G8987-GO-CI; G8988-GO-CI; G8989-GO-CI; Q9967

== ENCOUNTER → 2018-05-13 | Outpatient (CLI) | payer OTHER | LOC: CIMAGING 14:12 | PROVIDERS: ATTEND Family Medicine | DX: Z09 Encounter for follow-up examination after completed treatment for conditions other than malignant neoplasm (principal); R09.02 Hypoxemia; J94.2 Hemothorax; S22.39XA Fracture of one rib, unspecified side, initial encounter for closed fracture | CPT/HCPCS: 71046-PO ==

== ENCOUNTER → 2018-08-01 | Outpatient (CLI) | payer OTHER | LOC: CIMAGING 11:15 | PROVIDERS: ATTEND Internal Medicine Critical Care Medicine | DX: J84.10 Pulmonary fibrosis, unspecified (principal); I27.20 Pulmonary hypertension, unspecified; S22.42XG Multiple fractures of ribs, left side, subsequent encounter for fracture with delayed healing; N20.0 Calculus of kidney; K80.20 Calculus of gallbladder without cholecystitis without obstruction | CPT/HCPCS: 71250-PO ==